=== PATIENT | male | born 1975 | race Caucasian/White ===

== ENCOUNTER 2016-11-10 10:04 | Emergency (ER) | payer BC ==
[~2016-11-10] VITALS: Ht 193 cm; Wt 83.9 kg
== END 2016-11-10 11:30 | disposition home or self-care (01) ==
LOC: ED 10:04
PROC: 0HQLXZZ Repair Left Lower Leg Skin, External Approach (ICD-10-PCS; principal; 2016-11-10)
DX: S81.012A Laceration without foreign body, left knee, initial encounter (principal); W22.09XA Striking against other stationary object, initial encounter
CPT/HCPCS: 12002; 73560; 96374; 99283; J0690